=== PATIENT | female | born 1990 | race American Indian/Alaskan Native ===

== ENCOUNTER 2017-06-10 08:50 | Outpatient (CLI) | payer MEDICAID ==
[2017-06-10 09:08] VITALS: BP 119/68
[2017-06-10] MEDS ORDERED: VISTARIL PO ONE (10:00)
== END 2017-06-10 09:45 | disposition home or self-care (01) ==
LOC: TRG 08:50
PROVIDERS: ATTEND Obstetrics & Gynecology
DX: O47.1 False labor at or after 37 completed weeks of gestation (principal); Z3A.37 37 weeks gestation of pregnancy
CPT/HCPCS: 59025; Q0177